=== PATIENT | female | born 1960 | race African-American/Black ===

== ENCOUNTER 2016-05-17 15:19 | Emergency (ER) | payer OTHER ==
[~2016-05-17 15:19] MED LIST: ASPI81TA2 PO; ASPI81TA9 PO; HYDR-971 PO; NAPR500T8 PO; PANT40TA3 PO
[2016-05-17 16:41] VITALS: BP 138/83
[2016-05-17] MEDS ORDERED: HYDR-971 PO (17:19)
--- NOTE | 2016-05-17 17:19 | PHYS DOC ---
Past Medical History Past Medical History: No Pertinent History Past Surgical History: Hip Replacement Alcohol Use: Heavy Drug Use: None Adult General Chief Complaint Chief Complaint: OTHER COMPLAINTS HPI HPI Patient is a 56 year old female who presents with right forearm pain that began 3-1/2 weeks ago after she fell and broke her right forearm. Patient was seen in the ED, she followed up with Ortho who put her in cast. She states she would like the cast removed. She states she has an appointment on May 28, 2016 which is approximately 10 days to have the cast removed but she cant wait until then. Patient is also requesting something for pain. Review of Systems Review of Systems Constitutional: Denies fever or chills [] Musculoskeletal: right forearm cast removal Integument: Denies rash or skin lesions [] Neurologic: Denies headache, focal weakness or sensory changes [] Endocrine: Denies polyuria or polydipsia [] Allergies Allergies Allergies Coded Allergies Type Severity Reaction Last Updated Verified No Known Drug Allergies 06/04/14 No Physical Exam Physical Exam Constitutional: Well developed, well nourished, no acute distress, non-toxic appearance. [] Skin: Warm, dry, no erythema, no rash. [] Back: No tenderness, no CVA tenderness. [] Extremities: Right forearm in a cast. The fingers are pink, warm with a cap refill less than 2 seconds to the right fingers. Neurologic: Alert and oriented X 3, normal motor function, normal sensory function, no focal deficits noted. [] Psychologic: Affect normal, judgement normal, mood normal. [] Current Patient Data Vital Signs Vital Signs Date Time Temp Pulse Resp B/P Pulse Ox O2 Delivery O2 Flow Rate FiO2 05/17/16 16:41 98.7 66 16 95 Room Air 98.7 EKG EKG [] Radiology/Procedures Radiology/Procedures [] Course & Med Decision Making Course & Med Decision Making Pertinent Labs and Imaging studies reviewed. (See chart for details) Patient is in the ED with request to have her right forearm cast removed, she was casted 3-1/2 weeks ago after breaking her right forearm. Of note the cast is supposed to be removed on May 28, 2016 she states she cannot wait until then. The circulation evaluation is normal to the right fingers. Informed patient we do not remove cast in the ED unless there is circulation issues. She was discharged with hydrocodone for pain and instructed to follow-up with orthopedic doctor. Juan Disclaimer Kellyon Disclaimer This electronic medical record was generated, in whole or in part, using a voice recognition dictation system. Departure Departure Impression: Primary Impression: Inadequate pain control Additional Impression: Encounter for cast check Disposition: HOME, SELF-CARE Condition: STABLE Referrals: NO PCP (PCP) ABIDA WALDROP MD call his office and follow up with the doctor that put you in a cast Patient Instructions: Ulnar Fracture Additional Instructions: You need to follow-up with orthopedic doctor on May 28, 2016 for cast removal or you can call the office and see if they can see you anytime sooner. Currently circulation to the right forearm and fingers is normal. We do not remove any cast in the emergency room unless there is compromise in circulation. Keep the affected extremity iced and elevated. Take the pain medicines as needed. Scripts Hydrocodone/Apap 5-325 ([place] 5-325 Tablet)1 Each Tablet1-2 Tab PO Q4-6HRS #20 TAB Prov:ELVIRA MENG APRN 05/17/16 Problem Qualifiers ELVIRA MENG APRN May 17, 2016 17:19
--- NOTE | 2016-05-18 08:07 | RAD ---
Indication right hand pain. AP oblique and lateral views of the right hand were obtained. No prior imaging of the hand is available. Note is made of an examination of the wrist 04/30/2016. A plate and screws fixing a fracture of the radial diaphysis is again noted. Comminuted fracture involving the distal ulnar diaphysis is noted. Bony detail is somewhat obscured by virtue of a cast. An acute finding or significant change compared to the examination 04/30/2016, in visualized bony structures, is not seen. Some mild degenerative changes are noted involving the DIP joints. There are degenerative change involving the first metacarpal phalangeal joint. IMPRESSION: No acute bony finding
== END 2016-05-17 17:26 | disposition home or self-care (01) ==
LOC: ER 15:19
DX: Z46.89 Encounter for fitting and adjustment of other specified devices (principal)
CPT/HCPCS: 73130; 99284